=== PATIENT | female | born 1985 | race African-American/Black ===

== ENCOUNTER 2021-07-30 03:55 | Emergency (ER) | payer OTHER ==
[2021-07-30 04:18] VITALS: TEMP 98.3; BMI 33.9
[2021-07-30 07:15] LABS: URINE APPEARANCE CLEAR; URINE BILIRUBIN NEGATIVE (NEGATIVE); URINE COLOR YELLOW; URINE GLUCOSE (UA) NEGATIVE (NEGATIVE); URINE KETONE NEGATIVE (NEGATIVE); URINE LEUK ESTERASE NEGATIVE (NEGATIVE); URINE NITRITE NEGATIVE (NEGATIVE); URINE PROTEIN NEGATIVE (NEGATIVE); URINE UROBILINOGEN 0.2 mg/dL (0.2-1.0)
[2021-07-30 07:23] LABS: CALCIUM 8.3 mg/dL (8.5-10.1)
[2021-07-30 07:24] LABS: ALBUMIN 2.9 g/dl (3.4-5.0); BLOOD UREA NITROGEN 8.8 mg/dL (7-18)
[2021-07-30 07:26] LABS: BASO % 0.2 % (0-2.0); EOS % 0.6 % (0-4.5); HEMATOCRIT 31.9 % (32.4-45.2); HEMOGLOBIN 11.3 GM/dL (10.7-15.3); LYMPH % 20.9 % (8-40); MCH 31.7 pg (25.7-33.7); MCHC 35.5 g/dl (32.0-36.0); MEAN CELL VOLUME 89.2 fl (80-96); MEAN PLT VOLUME 9.7 fl (7.5-11.1); MONO % 4.8 % (3.8-10.2); NEUT % 73.5 % (42.8-82.8); PLATELET COUNT 205 10^3/uL (134-434); RBC 3.57 M/mm3 (3.60-5.2); RDW 13.8 % (11.6-15.6); WHITE BLOOD COUNT 11.1 K/mm3 (4.0-10.0)
[2021-07-30 07:27] LABS: CREATININE 0.5 mg/dL (0.55-1.3)
[2021-07-30 07:28] LABS: BILIRUBIN,TOTAL 0.2 mg/dL (0.2-1); TOT PROT 6.1 g/dl (6.4-8.2)
[2021-07-30 08:51] VITALS: BP 121/75; PULSE 80
== END 2021-07-30 08:50 | disposition home or self-care (01) ==
LOC: JER 03:55
DX: O26.893 Other specified pregnancy related conditions, third trimester (principal); R42 Dizziness and giddiness; Z3A.28 28 weeks gestation of pregnancy
CPT/HCPCS: 36415; 80053; 81003; 85025; 87086; 93005; 93010; 99284-25

== ENCOUNTER 2021-10-03 12:00 | Inpatient (IN) | payer OTHER ==
[2021-10-03 13:16] VITALS: BMI 35.2
[2021-10-03] MEDS ORDERED: morphine SULFATE/PF 1 MG/2 ML (2cc Syringe - QUVA) ONE (13:33)
[2021-10-03] MEDS ORDERED: ELECTROLYTE-148 SOLN 1,000 ML IV SCH (14:00)
[2021-10-03] MEDS ORDERED: OXYTOCIN 10 UNITS/ML VIAL ONE (15:00)
[2021-10-03] MEDS ORDERED: ceFAZolin SODIUM 1 GM VIAL ONE (15:00)
[2021-10-03] MEDS ORDERED: PHENYLEPHRINE HCL 10 MG/1 ML SINGLE DOSE VIAL ONE (15:00)
[2021-10-03] MEDS ORDERED: KETOROLAC TROMETHAMINE 30 MG/1 ML VIAL ONE (15:00)
[2021-10-03] MEDS ORDERED: ONDANSETRON 4 MG/2 ML VIAL ONE (15:00)
[2021-10-03] MEDS ORDERED: ONDANSETRON 4 MG/2 ML VIAL IVPUSH PRN ×2 (15:12)
[2021-10-03] MEDS ORDERED: morphine SULFATE/PF 1 MG/2 ML (2cc Syringe - QUVA) IT ONE (15:12)
[2021-10-03] MEDS ORDERED: ACETAMINOPHEN 1000 MG/100 ML BAG IVPB ONE (15:13)
[2021-10-03] MEDS ORDERED: OXYTOCIN 20 UNITS in 0.9% NS 20 UNIT/1,000 ML INFUS.BAG IV ONE ×2 (15:13→22:11)
[2021-10-03] MEDS ORDERED: BENZOCAINE 20% 57 GM BOTTLE TP PRN (15:16)
[2021-10-03] MEDS ORDERED: SENNOSIDES/DOCUSATE COMBO (SENNA PLUS) TABLET (UD) PO PRN (15:16)
[2021-10-03] MEDS ORDERED: WITCH HAZEL 50% (TUCKS) 40 PAD/JAR PAD TP PRN (15:16)
[2021-10-03] MEDS ORDERED: ACETAMINOPHEN 325 MG TABLET (FP) PO PRN (15:16)
[2021-10-03] MEDS ORDERED: BENZOCAINE 28 GM HEMORRHOIDAL OINTMENT TP PRN (15:16)
[2021-10-03] MEDS ORDERED: METHYLERGONOVINE MALEATE 0.2 MG/1 ML AMP IM PRN (15:16)
[2021-10-03] MEDS ORDERED: IBUPROFEN 800 MG/8 ML IJ IVPB PRN (15:16)
[2021-10-03] MEDS: OXYTOCIN 20 UNITS in 0.9% NS 20 UNIT/1,000 ML INFUS.BAG IV SCH ×2 (16:15→23:36)
[2021-10-03 16:56] LABS: CORD BASE EXCESS -6.2 mmol/L (0-2); CORD HCO3 20.9 mmHg (20-29); CORD PCO2 46.9 mmHg (30-78); CORD pH 7.266 (7.14-7.44)
[2021-10-03 16:59] LABS: CORD HCO3 22.3 mmHg (20-29); CORD PCO2 58.8 mmHg (30-78); CORD pH 7.197 (7.14-7.44)
[2021-10-03 17:29] LABS: EPI CELLS >36 /uL (0-25.1); HYALINE CASTS 17 /uL (0-3.1); PH,URINE 7.5 (5.0-8.0); URINE APPEARANCE CLEAR; URINE BACTERIA 60 /uL (0-1359); URINE BILIRUBIN NEGATIVE (NEGATIVE); URINE COLOR YELLOW; URINE GLUCOSE (UA) NEGATIVE (NEGATIVE); URINE KETONE 1+ (NEGATIVE); URINE LEUK ESTERASE NEGATIVE (NEGATIVE); URINE NITRITE NEGATIVE (NEGATIVE); URINE PROTEIN 2+ (NEGATIVE); URINE RBC 78 /uL (0-23.9); URINE UROBILINOGEN 0.2 mg/dL (0.2-1.0); URINE WBC 12 /uL (0-25.8)
[2021-10-03] MEDS: CLINDAMYCIN 600MG PREMIX IVPB 600 MG/50 ML BAG IVPB SCH (17:55)
[2021-10-03] MEDS: IBUPROFEN 600 MG TABLET (FP) PO PRN (23:34)
[2021-10-04] MEDS: CLINDAMYCIN 600MG PREMIX IVPB 600 MG/50 ML BAG IVPB SCH ×2 (02:00→10:19)
[2021-10-04] MEDS ORDERED: oxyCODONE HCL 5 MG TABLET PO PRN ×2 (03:16)
[2021-10-04 08:47] LABS: BASO % 0.3 % (0-2.0); EOS % 1.2 % (0-4.5); HEMATOCRIT 30.3 % (32.4-45.2); HEMOGLOBIN 10.9 GM/dL (10.7-15.3); LYMPH % 18.9 % (8-40); MCH 32.8 pg (25.7-33.7); MCHC 36.1 g/dl (32.0-36.0); MEAN CELL VOLUME 90.9 fl (80-96); MEAN PLT VOLUME 9.5 fl (7.5-11.1); MONO % 5.6 % (3.8-10.2); PLATELET COUNT 168 10^3/uL (134-434); RBC 3.33 M/mm3 (3.60-5.2); RDW 13.6 % (11.6-15.6); WHITE BLOOD COUNT 9.7 K/mm3 (4.0-10.0)
[2021-10-04] MEDS ORDERED: PATIENT'S OWN MEDICATION (NON-FORMULARY) (Prenatal Vit 93/Iron Fum/Folic [Prenatal Formula PO SCH (10:00)
[2021-10-04] MEDS: PRENATAL VITAMINS W/ FOLIC ACID TABLET (FP) PO SCH (10:16)
[2021-10-04] MEDS: ENOXAPARIN NA (PORCINE) 40 MG/0.4 ML DISP.SYRIN SQ SCH (10:16)
[2021-10-04] MEDS ORDERED: BISACODYL 10 MG SUPP.RECT RC PRN (15:16)
[2021-10-04] MEDS: SIMETHICONE 80 MG TAB.CHEW (FP) PO PRN (19:43)
[2021-10-04] MEDS: IBUPROFEN 600 MG TABLET (FP) PO PRN (19:43)
[2021-10-05] MEDS: SIMETHICONE 80 MG TAB.CHEW (FP) PO PRN ×3 (04:20→21:46)
[2021-10-05] MEDS: IBUPROFEN 600 MG TABLET (FP) PO PRN ×3 (04:20→21:46)
[2021-10-05] MEDS: PRENATAL VITAMINS W/ FOLIC ACID TABLET (FP) PO SCH (09:38)
[2021-10-05] MEDS: ENOXAPARIN NA (PORCINE) 40 MG/0.4 ML DISP.SYRIN SQ SCH (09:38)
[2021-10-06 09:25] LABS: BASO % 0.3 % (0-2.0); EOS % 2.6 % (0-4.5); HEMATOCRIT 34.3 % (32.4-45.2); HEMOGLOBIN 12.2 GM/dL (10.7-15.3); LYMPH % 21.6 % (8-40); MCH 32.3 pg (25.7-33.7); MCHC 35.6 g/dl (32.0-36.0); MEAN CELL VOLUME 90.8 fl (80-96); MEAN PLT VOLUME 9.3 fl (7.5-11.1); MONO % 4.1 % (3.8-10.2); NEUT % 71.4 % (42.8-82.8); PLATELET COUNT 227 10^3/uL (134-434); RBC 3.78 M/mm3 (3.60-5.2); RDW 13.7 % (11.6-15.6); WHITE BLOOD COUNT 9.3 K/mm3 (4.0-10.0)
[2021-10-06] MEDS: ENOXAPARIN NA (PORCINE) 40 MG/0.4 ML DISP.SYRIN SQ SCH (10:34)
[2021-10-06] MEDS: PRENATAL VITAMINS W/ FOLIC ACID TABLET (FP) PO SCH (10:35)
[2021-10-06] MEDS: IBUPROFEN 600 MG TABLET (FP) PO PRN (10:35)
[2021-10-06 12:32] VITALS: BP 123/82; PULSE 85; TEMP 98.4
== END 2021-10-06 15:05 | disposition home or self-care (01) | DRG 788 ==
LOC: JLDR 12:20 → J3W 16:30
PROVIDERS: ADMIT Obstetrics & Gynecology; ATTEND Obstetrics & Gynecology
PROC: 10D00Z1 Extraction of Products of Conception, Low, Open Approach (ICD-10-PCS; principal; 2021-10-03)
DX: O32.1XX0 Maternal care for breech presentation, not applicable or unspecified (principal); O16.4 Unspecified maternal hypertension, complicating childbirth; O34.13 Maternal care for benign tumor of corpus uteri, third trimester; O99.214 Obesity complicating childbirth; Z3A.37 37 weeks gestation of pregnancy; Z37.0 Single live birth
CPT/HCPCS: 36415; 36600; 81003; 82803; 85025; 87086; 88307-TC